=== PATIENT | male | born 1970 | race African-American/Black ===

== ENCOUNTER 2023-06-21 17:33 | Emergency (ER) | payer MEDICAID, MEDICARE ==
[~2023-06-21] VITALS: Ht 175.3 cm; Wt 95.0 kg
[~2023-06-21 17:33] MED LIST: KEPP500; PHEN100C12; PRIM250T7
[2023-06-21 17:40] VITALS: O2SAT 98
[2023-06-21] MEDS ORDERED: LEVETIRACETAM 1000MG PREMIX 100 ML IV ONE (18:00)
[2023-06-21 18:15] VITALS: BP 135/79; PULSE 90; RESP 15; TEMP 98.3
[2023-06-21 18:19] LABS: CLARITY URINE CLEAR (CLEAR); COLOR URINE YELLOW (YELLOW); GLUCOSE URINE NEGATIVE (NEGATIVE); KETONES URINE NEGATIVE (NEGATIVE); LEUKOCYTE ESTERASE URINE NEGATIVE (NEGATIVE); NITRITE URINE NEGATIVE (NEGATIVE); OCCULT BLOOD URINE NEGATIVE (NEGATIVE); PROTEIN URINE NEGATIVE (NEGATIVE); SPECIFIC GRAVITY URINE 1.019 (1.005-1.030); UROBILINOGEN URINE 0.2 E.U./dL (0.2-1.0)
== END 2023-06-21 18:34 | disposition left against medical advice (07) ==
LOC: ER 17:33
DX: R56.9 Unspecified convulsions (principal); I10 Essential (primary) hypertension
CPT/HCPCS: 99284; 96365; 71045; 81003; J1953